=== PATIENT | male | born 1955 | race Two or more races ===

== ENCOUNTER 2024-07-01 09:25 | Inpatient (IN) | payer OTHER, MEDICAID ==
[~2024-07-01] VITALS: Ht 170.2 cm; Wt 59.9 kg
[2024-07-01] MEDS: cloNIDine HCL 0.1 MG TAB PO ONE (09:45)
[2024-07-01 10:46] LABS: Basophils # (auto) 0 10 ^3/uL (0-0.2); Basophils % (auto) 0.4 % (0.0-2.0); Eosinophils # (auto) 0 10 ^3/uL (0-0.8); Eosinophils % (auto) 0.4 % (0.0-7.0); Lymphocytes # (auto) 2.3 10 ^3/uL (0.4-5.4); White Blood Cell 8.5 10^3/uL (4.4-10.8)
[2024-07-01 10:47] LABS: Hematocrit 45.8 % (41.0-53.0); Lymphocytes % (auto) 27.4 % (10.0-50.0); Mean Corpuscular Hemoglobin 34.5 pg (28.0-32.0); Mean Corpuscular Hgb Conc. 34.8 g/dL (32.0-36.0); Mean Corpuscular Volume 99.1 fL (80.0-100.0); Monocytes % (auto) 11.9 % (0.0-12.0); Neutrophils # (auto) 5.1 10 ^3/uL (1.6-8.6); Neutrophils % (auto) 59.9 % (37.0-80.0); Nucleated Red Blood Cells % 0.1 %; Platelet Count (auto) 313 10^3/uL (140-450); Red Blood Cells 4.63 10^6/uL (4.5-5.90); Red Cell Distribution Width 14.2 % (11.8-14.3)
[2024-07-01 10:54] LABS: Chloride 106 mmol/L (98-107); Potassium 4.7 mmol/L (3.5-5.1); Sodium 139 mmol/L (136-145)
[2024-07-01 10:55] LABS: Anion Gap 7 (5-15); Carbon Dioxide 26 mmol/L (20-31)
[2024-07-01 11:00] LABS: Glucose 146 mg/dL (74-106)
[2024-07-01 11:01] LABS: BUN/Creatinine Ratio 10.2 (10.0-20.0); Blood Urea Nitrogen 11 mg/dL (9-23)
[2024-07-01] MEDS ORDERED: IPRATROPIUM BROM 0.5 MG/2.5ML INH SOL NEB PRN (13:30)
[2024-07-01] MEDS ORDERED: ALBUTEROL SULF 2.5 MG/0.5ML(0.5%) NEB SOLN NEB PRN (13:30)
[2024-07-01] MEDS ORDERED: DOCUSATE SOD 100 MG CAP PO PRN (13:30)
[2024-07-01] MEDS: SODIUM CHLORIDE 0.9% 1,000 ML IV SCH (13:30)
[2024-07-01] MEDS ORDERED: NITROGLYCERIN 0.4 MG SL TAB SL PRN (13:30)
[2024-07-01 14:19] LABS: INR 1.06 (0.9-1.15); Prothrombin Time 11.2 sec (9.3-11.8)
[2024-07-01] MEDS: IOHEXOL 300 MG/ML 100ML BOTTLE IJ ONE (14:41)
[2024-07-01 15:25] VITALS: BP 179/83; PULSE 70; RESP 16; TEMP 98.9; O2SAT 98
[2024-07-01] MEDS: hydrALAZINE HCL 20 MG/ML VL IV PRN (15:25)
[2024-07-01 19:50] VITALS: O2SAT 97
[2024-07-01] MEDS: MORPHINE SULFATE INJ 2 MG/ml SYRG IV PRN (20:56)
[2024-07-02 00:48] VITALS: PULSE 75; RESP 21; O2SAT 99
[2024-07-02 01:45] VITALS: PULSE 69; RESP 14; O2SAT 97
[2024-07-02 04:44] LABS: Rapid Strep A Screen-Throat Negative
[2024-07-02 04:52] LABS: Basophils # (auto) 0 10 ^3/uL (0-0.2); Eosinophils # (auto) 0 10 ^3/uL (0-0.8); Eosinophils % (auto) 0.6 % (0.0-7.0); Monocytes # (auto) 0.6 10 ^3/uL (0-1.3); Neutrophils # (auto) 4.2 10 ^3/uL (1.6-8.6); Nucleated Red Blood Cells % 0.1 %; Red Blood Cells 4.05 10^6/uL (4.5-5.90); White Blood Cell 6.3 10^3/uL (4.4-10.8)
[2024-07-02 04:54] LABS: Basophils % (auto) 0.2 % (0.0-2.0); Hematocrit 39.9 % (41.0-53.0); Hemoglobin 13.8 g/dL (13.5-17.5); Lymphocytes # (auto) 1.5 10 ^3/uL (0.4-5.4); Lymphocytes % (auto) 23.3 % (10.0-50.0); Mean Corpuscular Hemoglobin 34.1 pg (28.0-32.0); Mean Corpuscular Hgb Conc. 34.6 g/dL (32.0-36.0); Mean Corpuscular Volume 98.5 fL (80.0-100.0); Monocytes % (auto) 9.5 % (0.0-12.0); Neutrophils % (auto) 66.4 % (37.0-80.0); Platelet Count (auto) 282 10^3/uL (140-450); Red Cell Distribution Width 14.3 % (11.8-14.3)
[2024-07-02 05:25] LABS: Alanine Aminotransferase 161 U/L (7-40); Albumin 3.8 g/dL (3.2-4.8); Alkaline Phosphatase 65 U/L (46-116); Anion Gap 8 (5-15); Aspartate Aminotransferase 124 U/L (13-40); BUN/Creatinine Ratio 13.5 (10.0-20.0); Blood Urea Nitrogen 13 mg/dL (9-23); Calcium 9.1 mg/dL (8.7-10.4); Carbon Dioxide 25 mmol/L (20-31); Chloride 105 mmol/L (98-107); Glucose 114 mg/dL (74-106); Potassium 4.2 mmol/L (3.5-5.1); Sodium 138 mmol/L (136-145)
[2024-07-02 05:26] LABS: Bilirubin, Total 0.9 mg/dL (0.2-1.0); Total Protein 6.3 g/dL (5.7-8.2)
[2024-07-02] MEDS: ONDANSETRON HCL 4 MG/2 ML VIAL IV PRN (06:31)
[2024-07-02 06:40] VITALS: O2SAT 97
[2024-07-02 08:20] VITALS: PULSE 77; RESP 16; O2SAT 95
[2024-07-02 23:50] VITALS: O2SAT 95
[2024-07-03 07:36] VITALS: PULSE 84; RESP 17; O2SAT 92
[2024-07-03 08:00] VITALS: O2SAT 93
[2024-07-03 23:55] VITALS: BP 172/111; PULSE 93; RESP 18; TEMP 98.3; O2SAT 94
[2024-07-04] VITALS (8 sets, daily range): BP systolic 119–172; BP diastolic 56–111; PULSE 93–105; RESP 16–20; TEMP 36.7; O2SAT 93–94
[2024-07-04] MEDS ORDERED: CARV6.2551 PO (04:15)
[2024-07-04] MEDS ORDERED: CLOP75TA70 PO (04:15)
[2024-07-04] MEDS ORDERED: ASPI-543 PO (04:15)
[2024-07-04] MEDS ORDERED: ATOR-47 PO (04:15)
[2024-07-04] MEDS ORDERED: HYDR-4902 PO (04:15)
[2024-07-04] MEDS ORDERED: UPAD15TA PO (04:15)
[2024-07-04] MEDS ORDERED: FLUT1AER3 IN (04:15)
== END 2024-07-04 14:00 | disposition home or self-care (01) | DRG 158 ==
LOC: ER 09:25 → OVERFLOW 13:53 → EAST 07-03 23:53
PROVIDERS: ADMIT Nurse Practitioner Family; ATTEND Family Medicine
DX: K02.9 Dental caries, unspecified (principal); I16.1 Hypertensive emergency; K51.90 Ulcerative colitis, unspecified, without complications; R04.2 Hemoptysis; I89.1 Lymphangitis; J43.2 Centrilobular emphysema; I10 Essential (primary) hypertension; F12.10 Cannabis abuse, uncomplicated; R07.0 Pain in throat; G62.9 Polyneuropathy, unspecified; E78.00 Pure hypercholesterolemia, unspecified; Z79.82 Long term (current) use of aspirin; Z87.891 Personal history of nicotine dependence; I25.2 Old myocardial infarction; Z85.820 Personal history of malignant melanoma of skin; Z90.49 Acquired absence of other specified parts of digestive tract; Z80.1 Family history of malignant neoplasm of trachea, bronchus and lung; Z80.6 Family history of leukemia
CPT/HCPCS: 36415; 70491; 71045; 71260; 80048; 80053; 84484; 85025; 85610; 87070; 87077; 87186; 87205; 87880; G0378; J2405